=== PATIENT | female | born 1970 | race African-American/Black ===

== ENCOUNTER 2020-10-24 19:44 | Emergency (ER) | payer BC, OTHER ==
[~2020-10-24] VITALS: Ht 165.1 cm; Wt 90.7 kg
[2020-10-24 20:21] LABS: CALCIUM 8.9 mg/dL (8.5-10.1); CREATININE 0.9 mg/dL (0.6-1.0)
[2020-10-24] MEDS ORDERED: POTASSIUM20 PO ×2 (21:13→21:23)
[2020-10-24] MEDS ORDERED: ONDANSETRON HCL4 M2 PO ×2 (21:14→21:23)
[2020-10-24 21:39] VITALS: BP 139/82
== END 2020-10-24 21:39 | disposition home or self-care (01) ==
LOC: ER 19:44
PROVIDERS: Nurse Practitioner
DX: R51.9 Headache, unspecified (principal); Z90.710 Acquired absence of both cervix and uterus